=== PATIENT | female | born 1945 | race Caucasian/White ===

== ENCOUNTER 2022-01-01 19:11 | Emergency (ER) | payer OTHER ==
[~2022-01-01] VITALS: Ht 180.3 cm; Wt 95.3 kg
[~2022-01-01 19:11] MED LIST: LEVO125T8 PO
[2022-01-01 19:20] VITALS: BP_SYST 124
[2022-01-01 19:49] LABS: BASOPHILS # (AUTO) 0.1 K/uL (0.0-0.2); BASOPHILS % (AUTO) 0.9 % (0.0-2.0); EOSINOPHILS # (AUTO) 0.2 K/uL (0.0-0.4); EOSINOPHILS % (AUTO) 2.8 % (0.0-4.0); HEMATOCRIT 40.1 % (36-48); HEMOGLOBIN 12.8 g/dL (12.0-16.0); LYMPHOCYTES # (AUTO) 0.7 K/uL (1.0-5.5); LYMPHOCYTES % (AUTO) 11.1 % (20.5-51.5); MEAN CORPUSCULAR HEMOGLOBIN 28 pg (27-31); MEAN CORPUSCULAR HGB CONC 32 % (32-36); MEAN CORPUSCULAR VOLUME 88 fL (79.0-98.0); MONOCYTES # (AUTO) 0.5 K/uL (0.0-1.0); MONOCYTES % (AUTO) 8.3 % (1.7-9.3); NEUTROPHILS # (AUTO) 4.6 K/uL (1.8-7.7); NEUTROPHILS % (AUTO) 76.9 % (40.0-70.0); PLATELET COUNT (AUTO) 236 K/uL (130-430); RED BLOOD CELL COUNT(AUTO) 4.58 MIL/uL (4.2-6.2); RED CELL DISTRIBUTION WIDTH 16.1 % (9.0-15.0); WHITE BLOOD COUNT (AUTO) 5.9 K/uL (4.8-10.8)
[2022-01-01] MEDS ORDERED: ACETAMINOPHEN 500 MG TABLET PO ONE (20:00)
[2022-01-01] MEDS ORDERED: LIDOCAINE PATCH 5% 1 EA TP ONE (20:00)
[2022-01-01 20:24] LABS: ANION GAP 9 (5-15); CALCIUM 8.4 mg/dL (8.4-11.0); CHLORIDE 106 mmol/L (98-107); CREATININE 0.65 mg/dL (0.55-1.30); GLUCOSE 105 mg/dL (70-99); POTASSIUM 4.6 mmol/L (3.5-5.1); SODIUM SERUM 143 mmol/L (136-145); UREA NITROGEN, BLOOD 20 mg/dL (8-21)
[2022-01-01 20:30] LABS: ALANINE AMINOTRANSFERASE 21 U/L (12-78); ALBUMIN 3.1 g/dL (3.4-4.8); ASPARTATE AMINOTRANSFERASE 21 U/L (10-37)
[2022-01-01] MEDS ORDERED: LIDO1ADH22 TP (20:46)
[2022-01-01 20:47] LABS: TOTAL BILIRUBIN 0.2 mg/dL (0.0-1.0)
[2022-01-01 21:36] VITALS: BP_SYST 124
== END 2022-01-01 21:36 | disposition home or self-care (01) ==
LOC: SED 19:11
DX: S00.03XA Contusion of scalp, initial encounter (principal); S70.11XA Contusion of right thigh, initial encounter; J44.9 Chronic obstructive pulmonary disease, unspecified; E11.9 Type 2 diabetes mellitus without complications; I10 Essential (primary) hypertension; F03.90 Unspecified dementia, unspecified severity, without behavioral disturbance, psychotic disturbance, mood disturbance, and anxiety; M19.90 Unspecified osteoarthritis, unspecified site; Z90.49 Acquired absence of other specified parts of digestive tract; Z98.84 Bariatric surgery status; Z95.0 Presence of cardiac pacemaker; Z88.2 Allergy status to sulfonamides; Z79.899 Other long term (current) drug therapy; W01.0XXA Fall on same level from slipping, tripping and stumbling without subsequent striking against object, initial encounter; Y93.89 Activity, other specified; Y92.89 Other specified places as the place of occurrence of the external cause; Y99.8 Other external cause status
CPT/HCPCS: 36415; 70450-TC; 72170-TC; 76376; 80053; 85025; 93005; 99285

== ENCOUNTER 2024-03-12 12:41 | Emergency (ER) | payer OTHER ==
[~2024-03-12] VITALS: Ht 170.2 cm; Wt 77.1 kg
[~2024-03-12 12:41] MED LIST changes: +LIDO1ADH22 TP
[2024-03-12] MEDS ORDERED: NOREPINEPHRINE 4 MG/4 ML VIAL IV ONE (13:20)
[2024-03-12 13:37] LABS: BASOPHILS # (AUTO) 0.1 K/uL (0.0-0.2); BASOPHILS % (AUTO) 0.9 % (0.0-2.0); EOSINOPHILS # (AUTO) 0.2 K/uL (0.0-0.4); EOSINOPHILS % (AUTO) 3.3 % (0.0-4.0); HEMATOCRIT 32.6 % (36-48); HEMOGLOBIN 10.7 g/dL (12.0-16.0); LYMPHOCYTES # (AUTO) 2.7 K/uL (1.0-5.5); LYMPHOCYTES % (AUTO) 43.5 % (20.5-51.5); MEAN CORPUSCULAR HEMOGLOBIN 29 pg (27-31); MEAN CORPUSCULAR HGB CONC 33 % (32-36); MEAN CORPUSCULAR VOLUME 88 fL (79.0-98.0); MONOCYTES # (AUTO) 0.2 K/uL (0.0-1.0); MONOCYTES % (AUTO) 2.8 % (1.7-9.3); NEUTROPHILS % (AUTO) 49.5 % (40.0-70.0); PLATELET COUNT (AUTO) 103 K/uL (130-430); RED CELL DISTRIBUTION WIDTH 15.5 % (9.0-15.0); WHITE BLOOD COUNT (AUTO) 6.1 K/uL (4.8-10.8)
[2024-03-12 13:46] VITALS: PULSE 58; RESP 6; TEMP 97.4; O2SAT 82
[2024-03-12 13:51] LABS: INR 1.2 (0.8-1.2); PROTHROMBIN TIME 12.1 SECS (9.5-12.5)
[2024-03-12 14:14] LABS: ACETAMINOPHEN 4 ug/mL (1-30); ALANINE AMINOTRANSFERASE 15 U/L (12-78); ALBUMIN 2.4 g/dL (3.4-4.8); ASPARTATE AMINOTRANSFERASE 17 U/L (10-37); BILIRUBIN,DIRECT 0.1 mg/dL (0.0-0.3); CALCIUM 7.2 mg/dL (8.4-11.0); CREATINE KINASE, TOTAL 49 U/L (26-192); CREATININE 1.12 mg/dL (0.55-1.30); GLUCOSE 388 mg/dL (74-106); POTASSIUM 3.3 mmol/L (3.5-5.1); SALICYLATE 3 mg/dL (3-30); TOTAL BILIRUBIN 0.3 mg/dL (0.0-1.0); TOTAL PROTEIN, SERUM 5.1 g/dL (6.4-8.3); UREA NITROGEN, BLOOD 10 mg/dL (8-21)
[2024-03-12 14:25] LABS: ANION GAP 2 (5-15)
[2024-03-12 14:26] LABS: ALCOHOL, BLOOD < 3 mg/dL (<10); CARBON DIOXIDE 76 mmol/L (23-29); CHLORIDE 127 mmol/L (98-107); SODIUM SERUM 205 mmol/L (136-145)
[2024-03-12] MEDS: NACL 0.9% 2,000 ML IV ONE (14:32)
[2024-03-12] MEDS: NOREPINEPHRINE BITARTRATE 4 MG in NS 246 ML IV ONE (14:35)
[2024-03-12 16:06] VITALS: PULSE 52
== END 2024-03-12 17:35 ==
LOC: SED 12:41
DX: I46.9 Cardiac arrest, cause unspecified (principal); Z88.2 Allergy status to sulfonamides; Z88.5 Allergy status to narcotic agent; Z88.6 Allergy status to analgesic agent; Z79.899 Other long term (current) drug therapy
CPT/HCPCS: 36556; 80076; 80048; 82009; 82140; 82550; 83880; 85025; 85610; 85730; 87040; 84484; 36415; 31500; 88740; 99291; 83605; 92950; 82397; 93005; 71045; 96360; 96361; G0482; J7030; G0480; G0481; 94002; 94760